=== PATIENT | female | born 1970 | race Caucasian/White ===

== ENCOUNTER 2017-11-03 18:20 | Emergency (ER) | payer OTHER ==
[~2017-11-03] VITALS: Ht 165.1 cm; Wt 52.0 kg
[~2017-11-03 18:20] MED LIST: CIPR-255 PO; FLNIN NAE; GLC/500 PO; GLC500 PO; GLIM1TAB PO; INSUINJ12 SC; MECL1TAB42 PO; MULT1CHW4 PO; ONDA8TAB13 SL; ROSU20TA PO; TYLOTC500 PO
[2017-11-03 18:39] VITALS: TEMP 36.6; Ht 165.1 cm; Wt 52.0 kg
[2017-11-03] MEDS ORDERED: IBUPROFEN 800 MG TAB PO STA (19:11)
[2017-11-03] MEDS ORDERED: OXYCODONE/ACETAMINOPHEN 5-325 TAB PO ONE (19:15)
[2017-11-03] MEDS ORDERED: LIDODERM (LIDOCAINE) PATCH 5% TD STA (19:28)
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
[2017-11-03] MEDS ORDERED: IBUP-1451 PO (21:41)
[2017-11-03] MEDS ORDERED: LDDP5 TD (21:41)
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
[2017-11-03 21:58] VITALS: BP 125/88; PULSE 82; O2SAT 97
[2017-11-04] MEDS ORDERED: LIDODERM (LIDOCAINE) PATCH 5% TD SCH (09:00)
== END 2017-11-03 21:59 | disposition home or self-care (01) ==
LOC: C.EDB 18:23 → C.EDA 21:59
DX: R07.89 Other chest pain (principal); V86.59XA Driver of other special all-terrain or other off-road motor vehicle injured in nontraffic accident, initial encounter; W22.8XXA Striking against or struck by other objects, initial encounter; E11.9 Type 2 diabetes mellitus without complications; Z79.84 Long term (current) use of oral hypoglycemic drugs; Z79.2 Long term (current) use of antibiotics; Z88.1 Allergy status to other antibiotic agents; Z83.3 Family history of diabetes mellitus; Z82.49 Family history of ischemic heart disease and other diseases of the circulatory system